=== PATIENT | female | born 1950 | race Caucasian/White ===

== ENCOUNTER 2017-04-11 05:07 | Day surgery (SDC) | payer MEDICARE, OTHER ==
--- NOTE | ~2017-04-11 | OP ---
PATIENT NAME: DEBI PAVON MEDICAL RECORD: [id number] :50 LOCATION:D.[facility] ADMISSION DATE: SURGEON: MIRZA BHARDWAJ MD DATE OF OPERATION: 04/11/2017 PREOPERATIVE DIAGNOSIS: Endometrial thickening. POSTOPERATIVE DIAGNOSES: Atrophic-appearing endometrium and cervical stenosis. PROCEDURE: Hysteroscopy, D&C. SURGEON: Mirza Bhardwaj MD ESTIMATED BLOOD LOSS: Minimal. INTRAVENOUS FLUIDS: Per anesthesia records. ENDOSCOPIC FLUID LOSS: Approximately 200 cc of 0.9 normal saline. FINDINGS: 1. Cervical stenosis. 2. Creation of superficial false passage off of the cervix to the anatomic right. No evidence of perforation. 3. Atrophic-appearing endometrium. 4. Obliterated ostia. PROCEDURE IN DETAIL: The patient was taken to the operating room where general anesthesia was achieved without difficulty. The patient was then prepped and draped in normal sterile fashion in the dorsal lithotomy position in the [facility]. The bladder was drained of approximately 100 cc of clear yellow urine. At this point, a Graves speculum was placed in the vagina and the cervix was identified and grasped on its anterior and posterior lips with a single tooth tenaculum. Cervical canal was identified and found to be obliterated with scar tissue. A #1, 2 and 3 lacrimal dilators were used to gently enter the first 1 cm of the cervix. At this point, a blunt-ended thin uterine sound was then used to cannulate the lower uterine segment. A superficial dilation at 2 to 3 cm was then performed approximately 5-mm at which point the hysteroscope was placed. A false passage was noted on the anatomic right of the cervix, which was blind ended and not communicating with the retroperitoneum or intraperitoneal space. No evidence of perforation was noted. To the anatomic left, the endocervical canal continued and the hysteroscope was gently placed into the uterine cavity. The endometrium appeared atrophic. Bilateral ostia appeared occluded. The uterus was properly sounded to 7 cm. At this point, endometrial pipelle was used for 3 passes in the true passage based on normal passes to 7 cm without resistance. Following removal of the pipelle, only scant bleeding was noted from the cervix and tenaculum were removed. The patient tolerated the procedure well, was transported to postanesthesia recovery stable without incident. TRANSINT:[id number] Voice Confirmation ID: [id number] DOCUMENT ID: [id number] OPERATIVE REPORT [id number] DEBI PAVON, MIRZA Becerra MD at 1540 CC: [id number] DICTATION DATE: 04/11/17811 SUBSTATION SUPERVISOR: 04/11/17 1132 [facility] 04/11/17 [facility] [address] [id number]
[~2017-04-11 05:07] MED LIST: CELEXA40 MG PO; GLUCOPHAGE1000 MG PO; LANTUS SOL100 UNIT/1 SQ; LOPRESSOR50 MG PO; PRINZIDE 10/12.1 TAB PO; QUESTRAN LIGH4 G/PKT PO
[2017-04-11] MEDS ORDERED: ZOCOR40 MG PO (05:36)
[2017-04-11] MEDS ORDERED: NEURONTIN600 MG PO (05:36)
[2017-04-11 05:38] VITALS: BP 102/66; BMI 38.6
[2017-04-11 06:22] LABS: BASOPHILS 0.2 % (0-2); EOSINOPHILS 1.8 % (0-7); HEMATOCRIT 33.4 % (36.0-48.0); IMMATURE GRANULOCYTES 0.2 % (0-5); LYMPHOCYTES 27.3 % (15-50); MCH 30.7 pg (26.0-34.0); MCHC 32.9 g/dL (31.0-37.0); MCV 93.3 fL (80.0-100.0); MONOCYTES 13.1 % (2-11); NEUTROPHILS 57.4 % (40-80); PLATELET COUNT 168 10x3/uL (130-400); RBC 3.58 10x6/uL (4.00-5.40); RDW 12.8 % (11.5-14.5); WBC 4.4 10x3/uL (4.8-10.8)
[2017-04-11 06:43] VITALS: BMI 38.6
[2017-04-11 07:04] LABS: ANION GAP 14.3 mmol/L (8-16); CARBON DIOXIDE 24.8 mmol/L (21.0-32.0); CREATININE - SERUM 1.1 mg/dL (0.6-1.3); POTASSIUM - SERUM 4.1 mmol/L (3.5-5.1)
== END 2017-04-11 11:15 | disposition home or self-care (01) ==
LOC: D.OPS 05:07 → D.PAN 07:30 → D.OPS 11:15
PROVIDERS: Anesthesiology; Obstetrics & Gynecology
DX: R93.8 Abnormal findings on diagnostic imaging of other specified body structures (principal); I10 Essential (primary) hypertension; E11.9 Type 2 diabetes mellitus without complications; K21.9 Gastro-esophageal reflux disease without esophagitis; G47.30 Sleep apnea, unspecified; Z01.812 Encounter for preprocedural laboratory examination

== ENCOUNTER → 2018-10-14 08:51 | Outpatient (CLI) | payer MEDICARE, BC ==
[~2018-10-14 08:51] MED LIST changes: +NEURONTIN600 MG PO; +ZOCOR40 MG PO
== END | disposition home or self-care (01) ==
LOC: D.NM 08:51
PROVIDERS: ATTEND Family Medicine
DX: E03.9 Hypothyroidism, unspecified (principal)